=== PATIENT | female | born 2000 | race Caucasian/White ===

== ENCOUNTER 2023-01-08 15:54 | Emergency (ER) | payer BC ==
[~2023-01-08] VITALS: Ht 149.9 cm; Wt 54.4 kg
[2023-01-08 16:00] VITALS: BP_SYST 138; PULSE 79; RESP 18; TEMP 98.2; O2SAT 99
[2023-01-08 16:53] LABS: BILIRUBIN,URINE NEGATIVE (NEGATIVE); BLOOD, URINE 3+ (NEGATIVE); CLARITY/URINE SLIGHTLY HAZY (CLEAR); COLOR,URINE YELLOW (YELLOW); GLUCOSE,URINE NEGATIVE (NEGATIVE); KETONES,URINE NEGATIVE (NEGATIVE); LEUKOCYTE ESTERASE ,URINE NEGATIVE (NEGATIVE); NITRITE, URINE NEGATIVE (NEGATIVE); PROTEIN URINE NEGATIVE (NEGATIVE); UROBILINOGEN,URINE 0.2 (0.2-1.0)
[2023-01-08 16:54] LABS: BACTERIA,URINE RARE /HPF (None Seen); MUCUS,URINE None Seen /LPF (None Seen); WBC,URINE 0-3 /HPF (0-3)
[2023-01-08 17:12] LABS: SERUM HCG (QUALITATIVE) NEGATIVE (NEGATIVE)
[2023-01-08 17:18] LABS: ALBUMIN 4.4 g/dL (3.4-4.8); CALCIUM 9.3 mg/dL (8.4-11.0); CREATININE 0.73 mg/dL (0.55-1.30); POTASSIUM 3.8 mmol/L (3.5-5.1); TOTAL BILIRUBIN 0.8 mg/dL (0.0-1.0); TOTAL PROTEIN, SERUM 8.1 g/dL (6.4-8.3)
[2023-01-08 17:29] LABS: BASOPHILS % (AUTO) 0.4 % (0.0-2.0); EOSINOPHILS % (AUTO) 0.4 % (0.0-4.0); HEMATOCRIT 41.2 % (36-48); HEMOGLOBIN 13.9 g/dL (12.0-16.0); LYMPHOCYTES % (AUTO) 24.5 % (20.5-51.5); MEAN CORPUSCULAR HEMOGLOBIN 29 pg (27-31); MEAN CORPUSCULAR HGB CONC 34 % (32-36); MEAN CORPUSCULAR VOLUME 85 fL (79.0-98.0); MONOCYTES % (AUTO) 8.2 % (1.7-9.3); NEUTROPHILS % (AUTO) 66.5 % (40.0-70.0); PLATELET COUNT (AUTO) 282 K/uL (130-430); RED BLOOD CELL COUNT(AUTO) 4.86 MIL/uL (4.2-6.2); RED CELL DISTRIBUTION WIDTH 12.8 % (9.0-15.0); WHITE BLOOD COUNT (AUTO) 7.6 K/uL (4.5-11.0)
[2023-01-08 17:30] LABS: LYMPHOCYTES # (AUTO) 1.8 K/uL (1.0-5.5); MONOCYTES # (AUTO) 0.6 K/uL (0.0-1.0)
[2023-01-08] MEDS ORDERED: IBUP-1969 PO (17:41)
[2023-01-08] MEDS ORDERED: HYDR-3927 PO (17:41)
[2023-01-08 18:49] VITALS: BP_SYST 120; PULSE 66; RESP 14; TEMP 98.7; O2SAT 97
== END 2023-01-08 18:53 | disposition home or self-care (01) ==
LOC: SED 15:54
DX: K80.50 Calculus of bile duct without cholangitis or cholecystitis without obstruction (principal); R10.10 Upper abdominal pain, unspecified; Z79.899 Other long term (current) drug therapy
CPT/HCPCS: 36415; 76705; 80053; 81000; 81025; 82150; 83690; 84703; 85025; 99284

== ENCOUNTER 2023-10-31 10:51 | Emergency (ER) | payer BC ==
[~2023-10-31] VITALS: Ht 157.5 cm; Wt 54.4 kg
[~2023-10-31 10:51] MED LIST: HYDR-3927 PO; IBUP-1969 PO
[2023-10-31 11:04] VITALS: BP_SYST 125; PULSE 90; RESP 22; TEMP 98.3; O2SAT 98
[2023-10-31] MEDS: KETOROLAC TROMETHAMINE 60 MG/2 ML VIAL IM ONE (11:25)
[2023-10-31 11:29] LABS: BASOPHILS # (AUTO) 0.1 K/uL (0.0-0.2); BASOPHILS % (AUTO) 0.5 % (0.0-2.0); EOSINOPHILS # (AUTO) 0.1 K/uL (0.0-0.4); EOSINOPHILS % (AUTO) 0.4 % (0.0-4.0); HEMATOCRIT 42.9 % (36-48); LYMPHOCYTES # (AUTO) 1.5 K/uL (1.0-5.5); LYMPHOCYTES % (AUTO) 9.1 % (20.5-51.5); MEAN CORPUSCULAR HEMOGLOBIN 29 pg (27-31); MEAN CORPUSCULAR HGB CONC 35 % (32-36); MEAN CORPUSCULAR VOLUME 84 fL (79.0-98.0); MONOCYTES # (AUTO) 1.3 K/uL (0.0-1.0); MONOCYTES % (AUTO) 7.9 % (1.7-9.3); NEUTROPHILS # (AUTO) 13.3 K/uL (1.8-7.7); NEUTROPHILS % (AUTO) 82.1 % (40.0-70.0); PLATELET COUNT (AUTO) 304 K/uL (130-430); RED BLOOD CELL COUNT(AUTO) 5.12 MIL/uL (4.2-6.2); RED CELL DISTRIBUTION WIDTH 12.9 % (9.0-15.0); WHITE BLOOD COUNT (AUTO) 16.3 K/uL (4.8-10.8)
[2023-10-31 11:39] LABS: BILIRUBIN,URINE NEGATIVE (NEGATIVE); BLOOD, URINE NEGATIVE (NEGATIVE); CLARITY/URINE CLEAR (CLEAR); COLOR,URINE YELLOW (YELLOW); GLUCOSE,URINE NEGATIVE (NEGATIVE); KETONES,URINE 1+ (NEGATIVE); LEUKOCYTE ESTERASE ,URINE 1+ (NEGATIVE); NITRITE, URINE NEGATIVE (NEGATIVE); PROTEIN URINE 1+ (NEGATIVE)
[2023-10-31 11:48] LABS: INR 1.1 (0.8-1.2)
[2023-10-31 11:59] LABS: BACTERIA,URINE FEW /HPF (None Seen); HYALINE CASTS, URINE 0-1 /LPF (None Seen); RBC,URINE 0-3 /HPF (0-3); YEAST,URINE Rare /HPF (None Seen)
[2023-10-31 12:03] LABS: ALBUMIN 4.8 g/dL (3.4-4.8); BILIRUBIN,DIRECT 0.3 mg/dL (0.0-0.3); CALCIUM 9.8 mg/dL (8.4-11.0); CREATININE 0.94 mg/dL (0.55-1.30); POTASSIUM 4.6 mmol/L (3.5-5.1); TOTAL BILIRUBIN 1.5 mg/dL (0.0-1.0); TOTAL PROTEIN, SERUM 8.8 g/dL (6.4-8.3)
[2023-10-31 12:09] LABS: SERUM HCG (QUALITATIVE) NEGATIVE (NEGATIVE)
[2023-10-31] MEDS ORDERED: IBUP-1969 PO (12:45)
[2023-10-31] MEDS ORDERED: HYDR-3917 PO (12:45)
[2023-10-31] MEDS ORDERED: ONDA-8 TL (12:45)
[2023-10-31 12:55] VITALS: BP_SYST 124; PULSE 87; RESP 20; TEMP 98.1; O2SAT 98
== END 2023-10-31 12:54 | disposition home or self-care (01) ==
LOC: SED 10:51
DX: K80.50 Calculus of bile duct without cholangitis or cholecystitis without obstruction (principal); R10.13 Epigastric pain; R11.2 Nausea with vomiting, unspecified; Z79.899 Other long term (current) drug therapy
CPT/HCPCS: 99285; 74176; 80076; 80048; 81001; 82150; 84703; 83690; 85025; 85610; 85730; 87086; 36415; 81025; 96372; 83605; 82397; J1885; 81000; 81015